=== PATIENT | female | born 1995 | race Caucasian/White ===

== ENCOUNTER → 2016-11-26 | Outpatient (CLI) | payer BC ==
--- NOTE | 2016-11-26 15:43 | DIAGNOSTIC IMAGING REPORT ---
ULTRASOUND VENOUS DOPPLER ULTRASOUND THE RIGHT LOWER EXTREMITY CLINICAL HISTORY: Right leg pain COMPARISON STUDY: No previous studies for comparison. FINDINGS: Real-time and color flow Doppler imaging were performed. Flow was seen within the femoral, popliteal and calf veins with no intraluminal thrombus demonstrated. The saphenous vein is patent. IMPRESSION: No evidence of right lower extremity DVT. Electronically signed by: Elton Segura M.D. 11/26/2016 3:42 PM Dictated Date/Time: 11/26/2016 3:37 PM
== END | disposition home or self-care (01) ==
LOC: C.ULTR 15:08
PROVIDERS: ATTEND Family Medicine
DX: M79.661 Pain in right lower leg (principal)